=== PATIENT | male | born 1985 | race Caucasian/White ===

== ENCOUNTER 2017-09-10 09:59 | Emergency (ER) | payer OTHER ==
[2017-09-10 10:07] VITALS: BP 131/85; PULSE 75; RESP 20; TEMP 98
--- NOTE | 2017-09-10 10:57 | ED ---
General Adult HPI - General Chief complaint: ENT Stated complaint: Sore throat Time Seen by Provider: 09/10/17 10:15 Source: patient, family, RN notes reviewed, Caregiver Mode of arrival: ambulatory Limitations: language barrier - History of Present Illness Initial comments: Chief complaint and history of present illness this is a 32-year-old male who is mentally challenged. He is here with his father and stepmother. The father has guardianship. Father reports that the nursing home or [facility] told the father he's not been eating much for the past 2 days. Try spent the weekend with his mother and she stated that he said he had a sore throat. When asked in the emergency room today if he was hungry he said yes. He also said he has a sore throat. - Related Data Home Medications Medication Instructions Recorded Confirmed No Known Home Medications [No 09/10/17 09/10/17 Known Home Medications] Allergies Allergy/AdvReac Type Severity Reaction Status Date / Time No Known Allergies Allergy Verified 09/10/17 10:26 Review of Systems ROS Statement: Those systems with pertinent positive or pertinent negative responses have been documented in the HPI. Review of systems. Patient's complaint of sore throat today and earlier. States he is hungry. the patient's mental challenges . A rapid strep test will be done. Past medical problems, ear surgery i.e. ear tubes. Mental retardation, no known ALLERGIES, father believes patient is up-to-date with his immunizations. He reportedly was checked for tuberculosis which was negative. Family history no cancers. ROS Other: All systems not noted in ROS Statement are negative. Past Medical History History of Any Multi-Drug Resistant Organisms: None Reported Past Surgical History: Ear Surgery Past Psychological History: No Psychological Hx Reported Smoking Status: Never smoker Past Alcohol Use History: None Reported Past Drug Use History: None Reported General Exam - General Exam Comments Initial Comments: General: The patient is awake in no distress, and does not appear acutely ill. Patient states he is hungry, when asked states he does have a sore throat. Patient's vital signs temperature 98.0 pulse 75 respiratory rate 20, blood pressure 131/85 pulse ox 99% room air Eye: Pupils are equal, round and reactive to light, extra-ocular movements are intact ; there is normal conjunctiva bilaterally. No signs of icterus. Ears, nose, mouth and throat: There are moist mucous membranes, mildly red sore throat, no exudate. Tonsils not enlarged. No significant anterior cervical lymphadenopathy. Patient does state he does have a sore throat. Neck: The neck is supple, there is no tenderness, no significant anterior cervical lymphadenopathy. Cardiovascular: There is a regular rate and rhythm. No murmur, rub or gallop is appreciated. Respiratory: Lungs are clear to auscultation, respirations are non-labored, breath sounds are equal. No wheezes, stridor, rales, or rhonchi. Gastrointestinal: Soft, non-distended, non-tender abdomen without masses or organomegaly noted. There is no rebound or guarding present. Bowel sounds are unremarkable. Back: There is no tenderness to palpation in the midline. There is no obvious deformity. No rashes noted. Musculoskeletal: Normal ROM, no tenderness, There is no pedal edema. There is no calf tenderness or swelling. . Pulses equal bilaterally 2+. Neurological: And normal neurological examination was not able to be performed because the patient's mental retardation. He does move all upper and lower extremities. Skin: Skin is warm and dry and no rashes or lesions are noted. Psychiatric: Mental retardation, but cooperative. Limitations: language barrier Course Vital Signs 09/10/17 10:05 Temperature 98.0 F Pulse Rate 75 Respiratory 20 Rate Blood Pressure 131/85 O2 Sat by Pulse 99 Oximetry Medical Decision Making - Medical Decision Making Medical decision making; this is a 32-year-old male here with father and stepmother. The father's his guardian. The patient is mentally retarded. He lives in a nursing home. He's been complaining of a sore throat for several days. Decreased appetite. In emergency room examination was done. Rapid strep test was reported to be negative. The patient did eat a sandwich and 8 and drank without difficulty. I discussed with father at bedside viral versus bacterial appears though the patient may fact he has a sore throat probably viral. They're to provide Tylenol ibuprofen as needed for fever or discomfort continue providing fluids and food. Follow with the family physician return emergency room as needed. - Lab Data Lab Results 09/10/17 Range/Units 11:00 Group A Strep Rapid Negative (Negative) Disposition Clinical Impression: Acute viral pharyngitis Disposition: HOME SELF-CARE Condition: Fair Instructions: Pharyngitis (ED) Is patient prescribed a controlled substance at d/c from ED?: No Referrals: Troy Butts MD [Primary Care Provider] - 1-2 days Time of Disposition: 11:52
== END 2017-09-10 12:04 | disposition home or self-care (01) ==
LOC: EC 09:59
DX: J02.9 Acute pharyngitis, unspecified (principal)
CPT/HCPCS: 87081; 87430; 99283

== ENCOUNTER → 2023-05-06 | Outpatient (CLI) | payer OTHER ==
[2023-05-06 15:38] LABS: Basophils # (A) 0.07 X 10*3/uL (0.00-0.10); Basophils % (A) 0.9 %; Eosinophils % (A) 7.9 %; HCT 47.6 % (39.6-50.0); HGB 15.4 g/dL (13.0-17.0); Lymphocytes % (A) 36.9 %; MCH 28.4 pg (27.0-32.0); MCHC 32.4 g/dL (32.0-37.0); MCV 87.8 FL (80.0-97.0); Mean Platelet Volume 10.3 FL (9.5-12.2); Monocytes # (A) 0.62 X 10*3/uL (0.20-1.00); Monocytes % (A) 8.2 %; NRBC Per 100 WBC 0 X 10*3/uL (0.00-0.01); Neutrophils # (A) 3.48 X 10*3/uL (1.80-7.70); Neutrophils % (A) 45.8 %; Platelet Count 338 X 10*3/uL (140-440); RBC 5.42 X 10*6/uL (4.40-5.60); RDW 13.8 % (11.5-14.5); WBC 7.59 X 10*3/uL (4.50-10.00)
[2023-05-06 16:03] LABS: ALT 20 U/L (10-49); AST 18 U/L (14-35); Albumin 4.4 g/dL (3.8-4.9); Albumin/Globulin Ratio 1.57 Ratio (1.60-3.17); Alkaline Phosphatase 64 U/L (41-126); BUN/Creat Ratio 14.22 Ratio (12.00-20.00); Blood Urea Nitrogen 12.8 mg/dL (9.0-27.0); Calcium 10.1 mg/dL (8.7-10.3); Chloride 106 mmol/L (96-109); Globulin 2.8 g/dL (1.6-3.3); Glucose 87 mg/dL (70-110); Potassium 5.1 mmol/L (3.5-5.5); Sodium 143 mmol/L (135-145); Total Bilirubin 0.3 mg/dL (0.3-1.2); Total Protein 7.2 g/dL (6.2-8.2)
== END | disposition home or self-care (01) ==
LOC: LABWHC1 07:34
PROVIDERS: ATTEND Nurse Practitioner Family
DX: Z00.01 Encounter for general adult medical examination with abnormal findings (principal); Z79.899 Other long term (current) drug therapy; F41.9 Anxiety disorder, unspecified
CPT/HCPCS: 36415; 80053; 82306; 85025